=== PATIENT | female | born 1975 | race Caucasian/White ===

== ENCOUNTER → 2024-05-12 | Day surgery (SDC) | payer OTHER, BC | END | disposition home or self-care (01) | LOC: JASU-SURG 12:18 | PROVIDERS: ATTEND Obstetrics & Gynecology | PROC: 07D63ZX Extraction of Left Axillary Lymphatic, Percutaneous Approach, Diagnostic (ICD-10-PCS; principal; 2024-05-12) | DX: R59.0 Localized enlarged lymph nodes (principal) | CPT/HCPCS: 19083; 76942-TC; 87899; 88305-TC; 88341-TC; 88342-TC; A4648 ==